=== PATIENT | female | born 2000 | race Caucasian/White ===

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

== ENCOUNTER 2019-02-20 07:20 | Inpatient (IN) | payer OTHER ==
[2019-02-20] MEDS: ONDANSETRON 4 MG INJ IV ×2 (09:08→13:24)
[2019-02-20] MEDS: morphine 2 MG INJ IV ×3 (09:08→19:59)
[2019-02-20] MEDS: SOD CHLORIDE 0.9% 1,000 ML IV (09:08)
[2019-02-20 09:27] LABS: ADD UMIC YES; UR ASCORBIC ACID NEGATIVE (NEGATIVE); UR BACTERIA FEW /HPF (NONE SEEN); UR BILIRUBIN (Dip) NEGATIVE (NEGATIVE); UR BLOOD (Dip) NEGATIVE (NEGATIVE); UR CLARITY SLIGHTLY CLOUDY (CLEAR); UR COLOR YELLOW (YELLOW); UR GLUCOSE (Dip) NEGATIVE (NEGATIVE); UR KETONES (Dip) NEGATIVE (NEGATIVE); UR LEUKOCYTE ESTERASE (Dip) 1+ Leu/ul (NEGATIVE); UR MUCUS FEW /HPF (NONE SEEN); UR NITRITE (Dip) NEGATIVE (NEGATIVE); UR RBC 4 /HPF (0-5); UR SPECIFIC GRAVITY (Dip) 1.023 (1.003-1.030); UR SQUAMOUS EPITHELIAL CELL FEW /HPF (FEW); UR TOTAL PROTEIN (Dip) 1+ mg/dl (NEGATIVE); UR UROBILINOGEN (Dip) NEGATIVE (NEGATIVE); UR WBC 24 /HPF (0-5)
[2019-02-20 09:29] LABS: ADD MAN DIFF? NO
[2019-02-20 09:31] LABS: BASOPHILS % 0.1 % (0.0-2.0); HEMOGLOBIN 10.5 g/dl (12.0-16.0); LYMPHOCYTES # 0.9 10^3/ul (0.8-2.9); MEAN CORPUSCULAR HEMOGLOBIN 21.7 pg (29.0-33.0); MEAN CORPUSCULAR VOLUME 72.5 fl (72.0-104.0); MEAN PLATELET VOLUME 10.9 fl (7.4-10.4); MONOCYTE # 0.3 10^3/ul (0.3-0.9); MONOCYTES % 2.2 % (0.0-13.0); NEUTROPHIL # 11.8 10^3/ul (1.6-7.5); NEUTROPHILS % 90.2 % (30.0-74.0); PLATELET COUNT 442 10^3/UL (140-415); RED BLOOD COUNT 4.83 10^6/ul (4.20-5.40); RED CELL DISTRIBUTION WIDTH 15.8 % (11.5-14.5)
[2019-02-20 09:31] LABS: WHITE BLOOD COUNT 13.1 10^3/ul (4.8-10.8)
[2019-02-20 09:49] LABS: ALANINE AMINOTRANSFERASE 7 IU/L (13-69); ALBUMIN 4.8 g/dl (3.3-4.9); ALBUMIN/GLOBULIN RATIO 1.02; ALKALINE PHOSPHATASE 115 IU/L (42-121); ANION GAP 11 (5-13); ASPARTATE AMINO TRANSFERASE 22 IU/L (15-46); BILIRUBIN,INDIRECT 0.5 mg/dl (0-1.1); BILIRUBIN,TOTAL 0.5 mg/dl (0.2-1.3); BLOOD UREA NITROGEN 9 mg/dl (7-20); CALCIUM 9.9 mg/dl (8.4-10.2); CARBON DIOXIDE 26 mmol/L (21-31); CHLORIDE 102 mmol/L (97-110); CREATININE 0.54 mg/dl (0.44-1.00); Estimated GFR > 60 mL/min (>60); GLUCOSE 129 mg/dl (70-220); LIPASE 34 U/L (23-300); POTASSIUM 4.4 mmol/L (3.5-5.1); SODIUM 139 mmol/L (135-144); TOTAL PROTEIN 9.5 g/dl (6.1-8.1)
[2019-02-20] MEDS: PIPER-TAZO 3.375 GM IV (PMX) 100 ML IVPB ×3 (09:55→21:59)
[2019-02-20] MEDS ORDERED: ONDANSETRON 4 MG INJ IV (10:00)
[2019-02-20] MEDS ORDERED: ACETAMINOPHEN 325 MG TAB PO (10:00)
[2019-02-20] MEDS ORDERED: ACETAMINOPHEN 650 MG SUPP PR (11:00)
[2019-02-20] MEDS ORDERED: NACL 0.9% 3 ML SYG IV (11:00)
[2019-02-21] MEDS: PIPER-TAZO 3.375 GM IV (PMX) 100 ML IVPB ×4 (02:15→17:59)
[2019-02-21 06:29] LABS: ADD MAN DIFF? NO
[2019-02-21 06:33] LABS: BASOPHILS % 0.2 % (0.0-2.0); EOSINOPHILS # 0.1 10^3/ul (0.0-0.5); EOSINOPHILS % 1.2 % (0.0-7.0); HEMATOCRIT 33.5 % (37.0-47.0); HEMOGLOBIN 9.8 g/dl (12.0-16.0); LYMPHOCYTES # 2.4 10^3/ul (0.8-2.9); LYMPHOCYTES % 27.5 % (18.0-55.0); MEAN CORPUSCULAR HEMOGLOBIN 21.4 pg (29.0-33.0); MEAN CORPUSCULAR HGB CONC 29.3 g/dl (32.0-37.0); MEAN PLATELET VOLUME 11.3 fl (7.4-10.4); MONOCYTE # 0.7 10^3/ul (0.3-0.9); MONOCYTES % 7.7 % (0.0-13.0); NEUTROPHIL # 5.5 10^3/ul (1.6-7.5); NEUTROPHILS % 63.1 % (30.0-74.0); PLATELET COUNT 437 10^3/UL (140-415); RED BLOOD COUNT 4.59 10^6/ul (4.20-5.40); RED CELL DISTRIBUTION WIDTH 15.9 % (11.5-14.5)
[2019-02-21 06:33] LABS: WHITE BLOOD COUNT 8.7 10^3/ul (4.8-10.8)
[2019-02-21 06:55] LABS: ALANINE AMINOTRANSFERASE 14 IU/L (13-69); ALBUMIN/GLOBULIN RATIO 0.93; ALKALINE PHOSPHATASE 100 IU/L (42-121); ANION GAP 11 (5-13); ASPARTATE AMINO TRANSFERASE 20 IU/L (15-46); BILIRUBIN,INDIRECT 0.9 mg/dl (0-1.1); BILIRUBIN,TOTAL 0.9 mg/dl (0.2-1.3); BLOOD UREA NITROGEN 9 mg/dl (7-20); CARBON DIOXIDE 27 mmol/L (21-31); CHLORIDE 104 mmol/L (97-110); CHOL/HDL RATIO 3.4 RATIO; CHOLESTEROL 122 mg/dl (85-185); CREATININE 0.66 mg/dl (0.44-1.00); Estimated GFR > 60 mL/min (>60); GLUCOSE 100 mg/dl (70-220); HDL CHOLESTEROL 35 mg/dl (33-83); LDL CHOLESTEROL,CALCULATED 60 mg/dl; MAGNESIUM 2.1 mg/dl (1.7-2.5); PHOSPHORUS 4.9 mg/dl (2.5-4.9); POTASSIUM 3.5 mmol/L (3.5-5.1); SODIUM 142 mmol/L (135-144); TOTAL PROTEIN 8.3 g/dl (6.1-8.1); TRIGLYCERIDES 137 mg/dl (0-149)
[2019-02-21] MEDS ORDERED: DESFLURANE 15 MIN (07:00)
[2019-02-21] MEDS ORDERED: ROCURONIUM 50 MG INJ (07:06)
[2019-02-21] MEDS ORDERED: MIDAZOLAM 1 MG/ML 2 ML INJ (07:06)
[2019-02-21] MEDS ORDERED: SUCCINYLCHOLINE CHLORIDE 100 MG/5 ML SYG IV (07:06)
[2019-02-21] MEDS ORDERED: PROPOFOL 20 ML (07:06)
[2019-02-21] MEDS ORDERED: ONDANSETRON 4 MG INJ (07:07)
[2019-02-21] MEDS ORDERED: KETOROLAC 30 MG INJ (07:08)
[2019-02-21] MEDS ORDERED: CEFAZOLIN 1 GM INJ (07:36)
[2019-02-21 07:57] LABS: HEMOGLOBIN A1C 5.9 % (0-5.9)
[2019-02-21] MEDS: BUPIVACAINE 0.25%/EPI (SDV) 30 ML INJ (08:12)
[2019-02-21] MEDS ORDERED: NEOSTIGMINE 3 MG/3 ML SYRINGE (08:31)
[2019-02-21] MEDS ORDERED: GLYCOPYRROLATE 0.4 MG INJ (08:31)
[2019-02-21] MEDS ORDERED: ONDANSETRON 4 MG INJ IV (09:00)
[2019-02-21] MEDS ORDERED: OXYCODONE/ACETAMINOPHEN (5/325) TAB PO (09:00)
[2019-02-21] MEDS: HYDROmorphONE 1 MG/5 ML IV SYRINGE IV ×3 (09:06→09:35)
[2019-02-21] MEDS: morphine 2 MG INJ IV ×3 (09:39→21:58)
[2019-02-21] MEDS: OXYCODONE/ACETAMINOPHEN (5/325) TAB PO (10:32)
[2019-02-21] MEDS: ONDANSETRON 4 MG INJ IV (10:35)
[2019-02-22] MEDS: PIPER-TAZO 3.375 GM IV (PMX) 100 ML IVPB ×4 (00:59→17:29)
[2019-02-22] MEDS: HYDROmorphONE 1 MG/ML SYG IV (01:00)
[2019-02-22 06:25] LABS: ADD MAN DIFF? NO
[2019-02-22 06:36] LABS: BASOPHILS % 0.1 % (0.0-2.0); EOSINOPHILS # 0.1 10^3/ul (0.0-0.5); EOSINOPHILS % 0.9 % (0.0-7.0); HEMATOCRIT 29.7 % (37.0-47.0); HEMOGLOBIN 8.9 g/dl (12.0-16.0); LYMPHOCYTES # 1.6 10^3/ul (0.8-2.9); MEAN CORPUSCULAR VOLUME 73.3 fl (72.0-104.0); MONOCYTE # 0.6 10^3/ul (0.3-0.9); MONOCYTES % 8.4 % (0.0-13.0); NEUTROPHIL # 5.2 10^3/ul (1.6-7.5); NEUTROPHILS % 69.3 % (30.0-74.0); PLATELET COUNT 353 10^3/UL (140-415); RED BLOOD COUNT 4.05 10^6/ul (4.20-5.40); RED CELL DISTRIBUTION WIDTH 15.7 % (11.5-14.5)
[2019-02-22 06:36] LABS: WHITE BLOOD COUNT 7.5 10^3/ul (4.8-10.8)
[2019-02-22 06:55] LABS: ALANINE AMINOTRANSFERASE 36 IU/L (13-69); ALBUMIN 3.4 g/dl (3.3-4.9); ALBUMIN/GLOBULIN RATIO 0.87; ALKALINE PHOSPHATASE 104 IU/L (42-121); ANION GAP 8 (5-13); ASPARTATE AMINO TRANSFERASE 44 IU/L (15-46); BILIRUBIN,INDIRECT 0.8 mg/dl (0-1.1); BILIRUBIN,TOTAL 0.8 mg/dl (0.2-1.3); BLOOD UREA NITROGEN 6 mg/dl (7-20); CALCIUM 8.8 mg/dl (8.4-10.2); CARBON DIOXIDE 27 mmol/L (21-31); CHLORIDE 105 mmol/L (97-110); CREATININE 0.59 mg/dl (0.44-1.00); Estimated GFR > 60 mL/min (>60); GLUCOSE 91 mg/dl (70-220); POTASSIUM 3.7 mmol/L (3.5-5.1); SODIUM 140 mmol/L (135-144); TOTAL PROTEIN 7.3 g/dl (6.1-8.1)
[2019-02-22 07:07] LABS: PHOSPHORUS 4.1 mg/dl (2.5-4.9)
[2019-02-22 07:07] LABS: MAGNESIUM 2.1 mg/dl (1.7-2.5)
[2019-02-22] MEDS: morphine 2 MG INJ IV (08:44)
== END 2019-02-22 18:15 | disposition home or self-care (01) | DRG 419 ==
LOC: FTE 07:20 → PP2 09:44
PROC: 0FT44ZZ Resection of Gallbladder, Percutaneous Endoscopic Approach (ICD-10-PCS; principal; 2019-02-21 07:30)
DX: K80.00 Calculus of gallbladder with acute cholecystitis without obstruction (principal); E66.9 Obesity, unspecified; F17.200 Nicotine dependence, unspecified, uncomplicated; R73.03 Prediabetes
CPT/HCPCS: 76705; 80053; 80061; 81001; 81025; 83036; 83690; 83735; 84100; 85025; 88304

== ENCOUNTER 2019-03-02 10:52 | Emergency (ER) | payer OTHER | END 2019-03-02 12:05 | disposition home or self-care (01) | LOC: FTE 10:52 | DX: Z48.02 Encounter for removal of sutures (principal) | CPT/HCPCS: 99281; Z7502 ==